=== PATIENT | female | born 1940 | race Caucasian/White ===

== ENCOUNTER 2017-10-05 14:39 | Inpatient (IN) | payer MEDICARE ==
[~2017-10-05] VITALS: Ht 147.3 cm; Wt 59.9 kg
[~2017-10-05 14:39] MED LIST: Z.0.AZOR 10-40 MG1 E PO
--- NOTE | 2017-10-05 17:21 | Diagnostic Imaging Report ---
PROCEDURE:X-RAY CHEST, ONE VIEW 1705 hrs. COMPARISON:No relevant priors available for comparison. INDICATIONS:PRIMARY DOCTOR SENT TO ER DUE TO CHEST PAIN FINDINGS: The heart is enlarged. Aorta is ectatic with calcification of the arch. No hilar lymphadenopathy. Mild bronchial wall thickening is present. The lungs are diffusely hyperinflated. No mass or infiltrate. The costophrenic angles are sharp. No pneumothorax. The bones are diffusely demineralized. A fusion plate in lower cervical spine is partially imaged. There is a treated compression deformity in the upper lumbar spine. CONCLUSION: 1. Pulmonary hyperinflation suggestive of COPD. Mild bronchial wall thickening could be acute or chronic. No pulmonary infiltrates. 2. Cardiomegaly without vascular congestion. 3. Osseous findings as described above. Dictated by: Yessi Wheeler M.D. on 10/05/2017 at 17:28 Electronically approved by: Yessi Wheeler M.D. on 10/05/2017 at 17:28
[2017-10-05 17:23] LABS: BASOPHILS % 0.3 % (0.0-1.0); HEMATOCRIT 36.9 % (34.2-44.1); LYMPHOCYTES # (AUTO) 1.5 (1.0-3.2); LYMPHOCYTES % 22.3 % (18.0-39.1); MEAN CORPUSCULAR HEMOGLOBIN 30.4 pg (28-32); MEAN CORPUSCULAR HGB CONC 35.2 g/dL (31-35); MEAN CORPUSCULAR VOLUME 86.4 fL (81-99); MONOCYTES % 15.3 % (4.4-11.3); NEUTROPHILS % 61.9 % (38.7-80.0); PLATELET COUNT 236 x10e3/uL (140-360); RED BLOOD COUNT 4.27 x10e6/uL (3.6-5.1); RED CELL DISTRIBUTION WIDTH 12.3 % (11.7-14.4)
[2017-10-05 17:39] LABS: INR 0.86; PROTHROMBIN TIME 12.1 seconds (11.9-14.5)
[2017-10-05 17:40] LABS: PARTIAL THROMBOPLASTIN TIME 31.4 seconds (23.8-35.5)
[2017-10-05 17:52] LABS: ALANINE AMINOTRANSFERASE 25 IU/L (0-55); ALBUMIN 3.8 g/dL (3.5-5.0); ALBUMIN/GLOBULIN RATIO 1.1 (0.8-2.0); ALKALINE PHOSPHATASE 81 IU/L (40-150); ANION GAP 12.7 mmol/L (8-16); BLOOD UREA NITROGEN 17 mg/dL (7-26); BUN/CREATININE RATIO 24 (6-25); CALCIUM 9.3 mg/dL (8.4-10.2); CARBON DIOXIDE 26 mmol/L (22-29); CHLORIDE 95 mmol/L (98-107); CREATINE KINASE 108 IU/L (29-168); CREATININE, SERUM 0.72 mg/dL (0.57-1.11); EST GLOMERULAR FILTRATION RATE > 60 ML/MIN (60-); GLUCOSE 139 mg/dL (74-118); POTASSIUM 3.7 mmol/L (3.5-5.1); SODIUM 130 mmol/L (136-145)
[2017-10-05 18:05] LABS: TROPONIN I 0.009 ng/mL (0-0.300)
[2017-10-05] MEDS ORDERED: ALBUTEROL SULF 0.083% NEB SOLN 3 ML NEB NEB STA (21:11)
[2017-10-05] MEDS ORDERED: IPRATROPIUM BROMIDE 0.02% 2.5 ML NEB NEB ONE (21:15)
[2017-10-05] MEDS ORDERED: METHYLPREDNISOLONE SOD SUCC 125 MG/2ML VIAL IV ONE (21:15)
[2017-10-05] MEDS ORDERED: ASPIRIN 81 MG CHEW TAB PO ONE (22:00)
[2017-10-05] MEDS ORDERED: WATER STERILE 10 ML VIAL INJ PRN (22:15)
[2017-10-05 22:21] LABS: BILIRUBIN,URINE NEGATIVE (NEGATIVE); KETONES,URINE 3+ (NEGATIVE); LEUKOCYTE ESTERASE ,URINE 2+ (NEGATIVE); NITRITE,URINE NEGATIVE (NEGATIVE); URINE UROBILINOGEN 0.2 mg/dL (0.2 - 1)
[2017-10-05 22:22] LABS: CLARITY,URINE SL CLOUDY (CLEAR); COLOR,URINE YELLOW (YELLOW); PROTEIN,URINE DIPSTICK 1+ (NEGATIVE)
[2017-10-05 22:31] LABS: BACTERIA,URINE FEW /HPF; EPITHELIAL CELLS,URINE FEW /LPF; MUCUS,URINE MODERATE (RARE)
[2017-10-05 22:32] LABS: WBC,URINE (MAN) 21-50 /HPF (0-5)
[2017-10-06] MEDS ORDERED: PREDNISONE20 MG PO (00:24)
[2017-10-06] MEDS ORDERED: PROAIR HFA INH8.5 GM IH (00:24)
[2017-10-06] MEDS ORDERED: anoro ellipta IH (00:24)
[2017-10-06] MEDS ORDERED: GUAIFENESIN 200 MG/10 ML UDC PO PRN (00:30)
[2017-10-06] MEDS ORDERED: ACETAMINOPHEN 325 MG TAB PO PRN (00:30)
[2017-10-06] MEDS ORDERED: CHLORASEPTIC SPRAY 177 ML BTL MM PRN (00:30)
[2017-10-06] MEDS: METHYLPREDNISOLONE SOD SUCC 40 MG/ML VIAL IV SCH ×3 (02:11→20:57)
[2017-10-06] MEDS ORDERED: ASPIRIN 81 MG CHEW TAB PO ONE (03:00)
[2017-10-06] MEDS: ENOXAPARIN SOD INJ 40 MG/0.4 ML SYR SC SCH ×2 (03:15→18:06)
[2017-10-06] MEDS: CEFTRIAXONE SOD 1 GM VIAL IV SCH ×2 (03:15→21:55)
--- NOTE | 2017-10-06 03:41 | Consultation ---
DATE OF CONSULTATION: October 05, 2017 PULMONARY MEDICINE CONSULT PRIMARY CARE DOCTOR: Dr. Flores. HISTORY OF PRESENT ILLNESS: Ms. Dickson is a pleasant 77-year-old female with shortness of breath. Patient with pattern of worsening shortness of breath recently. Onset was 5 days previous. Patient used her 's inhaler for minimal relief only and this was not sufficient. Patient tried to stay at home without coming to the hospital. Finally, she went to her primary care doctor today. She was given initial treatment, but was told to come to emergency room as she was too far advanced in her shortness of breath. Patient with increasing phlegm secretions. Her baseline exercise tolerance is 1 home distance and she can only do 1 room right now. She has associated crackles in her lungs and some small wheezing. Patient had chest x-ray showing hyperinflated lungs, but otherwise no definite pneumonia. Patient was admitted to the hospital after coming to [facility] Emergency Room. PAST MEDICAL HISTORY: COPD, osteoporosis, hypertension. MEDICATIONS: Medication list reviewed per the electronic record. No personal inhalers per patient preference in the past as she uses her 's. ALLERGIES: CODEINE CITED. FAMILY HISTORY: Noncontributory to this. SOCIAL HISTORY: Patient smokes since age 19 to 77, active, 1.5 packs per day. No alcohol. No drugs. She is retired office bookkeeper. Lives with her . REVIEW OF SYSTEMS GENERAL: No weight changes. OPHTHALMOLOGIC: No icteric. ENT: No dry mouth. ENDOCRINE: No thyroid disease. PULMONARY: No asthma. CARDIAC: No heart attacks. IMMUNOLOGIC: No allergies chronically. No ectopy. GI: No constipation. : No blood in the urine. DERMATOLOGIC: No rashes. NEUROLOGIC: No seizures. EXAM VITALS: Afebrile. Vital signs noted per electronic record. GENERAL: In no acute distress, but she is very tired, weak and pale and she seems very low on energy. Mild increase in neck muscle use to breathe. HEENT: Normocephalic, atraumatic. NECK: Supple. Throat midline. LUNGS: Bilateral air entry, [id number] air entry, moderate crackles, few rhonchi, few wheezes. CARDIOVASCULAR: S1, S2. No murmurs, rubs or gallops. ABDOMEN: Soft, nontender. EXTREMITIES: No clubbing, no cyanosis. There is 1+ edema at the ankles and feet. INTEGUMENTARY: No rash, no purpura. LABS: Sodium 130, chloride 95, BUN 17, creatinine 0.7. Albumin 3.8. White count 6.5, hematocrit 37, platelets 236,000. Urinalysis with RBC 6-10, WBC 21-50, 3+ ketones, 3+ blood in urine. IMPRESSION 1. Chronic obstructive pulmonary disease with exacerbation. 2. Debility/weakness. 3. Hypertension with urgency/emergency, 188/86 blood pressure coming in. 4. Osteopenia. 5. Mild chronic bronchitis. PLAN: Admit to hospital. Give steroids. Bronchodilators are indicated. DVT prophylaxis. Patient will benefit from aggressive pulmonary rehab after hospitalization. She needs to strengthen. Will follow along closely. Initial antibiotics should be given, given severity of the illness to ensure we do not miss pneumonia. Patient needs low-dose chest CT as outpatient for lung cancer screening. Outpatient PFT is indicated. Prior to discharge, will need consideration for home oxygen. She will benefit from her own inhalers to be given to her. Thank you very much Dr. Flores and Dr. Galeana for this consult. I will remain available for questions, so please call. Job#: [id number]
[2017-10-06 03:56] LABS: TROPONIN I 0.007 ng/mL (0-0.300)
[2017-10-06] MEDS: ALBUTEROL/IPRATROPIUM 3 ML NEB NEB SCH ×6 (04:15→23:00)
[2017-10-06] MEDS: DOXYCYCLINE 100MG/NS 100ML 100 ML IV SCH ×2 (08:50→20:10)
[2017-10-06 09:33] LABS: HEMATOCRIT 34.4 % (34.2-44.1); HEMOGLOBIN 12.4 g/dL (12.0-16.0); LYMPHOCYTES # (AUTO) 0.5 (1.0-3.2); LYMPHOCYTES % 22.8 % (18.0-39.1); MEAN CORPUSCULAR HEMOGLOBIN 31.2 pg (28-32); MEAN CORPUSCULAR VOLUME 86.6 fL (81-99); MONOCYTES % 1.5 % (4.4-11.3); NEUTROPHILS # (AUTO) 1.6 (2.1-6.9); NEUTROPHILS % 75.7 % (38.7-80.0); PLATELET COUNT 215 x10e3/uL (140-360); RED BLOOD COUNT 3.97 x10e6/uL (3.6-5.1); RED CELL DISTRIBUTION WIDTH 12.1 % (11.7-14.4)
[2017-10-06 09:55] LABS: ANION GAP 14.6 mmol/L (8-16); BLOOD UREA NITROGEN 17 mg/dL (7-26); BUN/CREATININE RATIO 21 (6-25); CALCIUM 8.8 mg/dL (8.4-10.2); CARBON DIOXIDE 24 mmol/L (22-29); CHLORIDE 94 mmol/L (98-107); CREATININE, SERUM 0.81 mg/dL (0.57-1.11); EST GLOMERULAR FILTRATION RATE > 60 ML/MIN (60-); GLUCOSE 349 mg/dL (74-118); POTASSIUM 3.6 mmol/L (3.5-5.1); SODIUM 129 mmol/L (136-145)
[2017-10-06 10:58] LABS: CREATINE KINASE MB 1.1 ng/mL (0.00-5.00); TROPONIN I 0.001 ng/mL (0-0.300)
[2017-10-06 11:27] LABS: LYMPHOCYTES % (MANUAL) 22 % (19-48); MONOCYTES % (MANUAL) 2 % (3.4-9.0); NEUTROPHILS % (MANUAL) 75 % (40-74); PLATELET ESTIMATE ADEQUATE; PLATELET MORPHOLOGY COMMENT NORMAL; RBC MORPHOLOGY COMMENT NORMAL
[2017-10-06 15:05] VITALS: BP 153/68
[2017-10-06] MEDS ORDERED: ALBUTEROL SULFATE HFA 8GM INHALATION AEROSOL INH PRN (16:45)
[2017-10-06 17:18] VITALS: BP 146/67
[2017-10-06] MEDS ORDERED: SODIUM CHLORIDE 0.9% 250ML 250 ML ONE (20:21)
[2017-10-06 22:56] VITALS: BP 146/67
[2017-10-07] VITALS (8 sets, daily range): BP systolic 136–163; BP diastolic 63–71
[2017-10-07] MEDS: ALBUTEROL/IPRATROPIUM 3 ML NEB NEB SCH ×4 (02:30→23:00)
[2017-10-07 06:29] LABS: BASOPHILS % 0.1 % (0.0-1.0); EOSINOPHILS % 0.1 % (0.0-6.0); HEMATOCRIT 33.5 % (34.2-44.1); HEMOGLOBIN 11.7 g/dL (12.0-16.0); LYMPHOCYTES # (AUTO) 1.3 (1.0-3.2); MEAN CORPUSCULAR HEMOGLOBIN 30.6 pg (28-32); MEAN CORPUSCULAR HGB CONC 34.9 g/dL (31-35); MEAN CORPUSCULAR VOLUME 87.7 fL (81-99); MONOCYTES % 5.5 % (4.4-11.3); NEUTROPHILS % 86.8 % (38.7-80.0); PLATELET COUNT 217 x10e3/uL (140-360); RED BLOOD COUNT 3.82 x10e6/uL (3.6-5.1); RED CELL DISTRIBUTION WIDTH 12.4 % (11.7-14.4)
[2017-10-07 06:54] LABS: ANION GAP 13.9 mmol/L (8-16); BLOOD UREA NITROGEN 15 mg/dL (7-26); BUN/CREATININE RATIO 19 (6-25); CARBON DIOXIDE 26 mmol/L (22-29); CHLORIDE 95 mmol/L (98-107); CREATININE, SERUM 0.77 mg/dL (0.57-1.11); EST GLOMERULAR FILTRATION RATE > 60 ML/MIN (60-); GLUCOSE 170 mg/dL (74-118); MAGNESIUM 1.8 MG/DL (1.3-2.1); POTASSIUM 3.9 mmol/L (3.5-5.1); SODIUM 131 mmol/L (136-145); TRIGLYCERIDES 91 MG/DL (0-149)
--- NOTE | 2017-10-07 06:55 | Diagnostic Imaging Report ---
EXAMINATION: CHEST SINGLE (PORTABLE) INDICATION: Pneumonia. COMPARISON: None FINDINGS: TUBES and LINES: None. LUNGS: Lungs are well inflated. Lungs are clear. There is no evidence of pneumonia or pulmonary edema. PLEURA: No pleural effusion or pneumothorax. HEART AND MEDIASTINUM: Cardiac size is mildly enlarged. There are atherosclerotic calcifications within the aorta. BONES AND SOFT TISSUES: No acute osseous lesion. Soft tissues are unremarkable. UPPER ABDOMEN: No free air under the diaphragm. IMPRESSION: No acute thoracic abnormality. Signed by: Dr. Keith Marroquin M.D. on 10/07/2017 6:51 AM
[2017-10-07 07:17] LABS: THYROID STIMULATING HORMONE 0.293 uIU/mL (0.350-4.940)
[2017-10-07] MEDS: DOXYCYCLINE 100MG/NS 100ML 100 ML IV SCH ×2 (10:00→20:11)
[2017-10-07] MEDS: METHYLPREDNISOLONE SOD SUCC 40 MG/ML VIAL IV SCH (10:00)
[2017-10-07 10:29] LABS: BASOPHILS % 0.1 % (0.0-1.0); HEMATOCRIT 33.2 % (34.2-44.1); HEMOGLOBIN 11.8 g/dL (12.0-16.0); LYMPHOCYTES # (AUTO) 1.4 (1.0-3.2); LYMPHOCYTES % 7.7 % (18.0-39.1); MEAN CORPUSCULAR HEMOGLOBIN 31.1 pg (28-32); MEAN CORPUSCULAR HGB CONC 35.5 g/dL (31-35); MEAN CORPUSCULAR VOLUME 87.6 fL (81-99); MONOCYTES # (AUTO) 1.2 (0.2-0.8); MONOCYTES % 6.8 % (4.4-11.3); NEUTROPHILS # (AUTO) 15.6 (2.1-6.9); PLATELET COUNT 225 x10e3/uL (140-360); RED BLOOD COUNT 3.79 x10e6/uL (3.6-5.1); RED CELL DISTRIBUTION WIDTH 12.6 % (11.7-14.4)
--- NOTE | 2017-10-07 13:28 | History and Physical ---
HISTORY OF PRESENT ILLNESS: A 69-year-old white female with past medical history positive for hypertension, history of COPD. Patient came here with shortness of breath. She was found to have COPD exacerbation. Chest x-ray failed to show any evidence of pneumonia. REVIEW OF SYSTEMS: CARDIOVASCULAR: No chest pain or palpitations. RESPIRATORY: Shortness of breath, cough and wheezing GENITOURINARY: No frequency or dysuria. GASTROINTESTINAL: No nausea, no vomiting or diarrhea. ALLERGIES: CODEINE. SOCIAL HISTORY: She is still smoking. She does not drink alcohol. PAST MEDICAL HISTORY: Hypertension and COPD. PHYSICAL EXAMINATION: HEART: Shows regular rhythm. Normal S1 S2. No extra sounds. LUNGS: Clear bilaterally. ABDOMEN: Soft. EXTREMITIES: Show no evidence of cyanosis, edema or trauma. Chest x-ray showed evidence of COPD but no evidence of infiltrates. On the BMP, sodium 129, potassium 3.6, chloride 94. CO2 24, BUN 17, creatinine 0.81. Glucose 349. On the CBC white blood count 2.06, hemoglobin 12.4, hematocrit 34.4, platelet count 215,000. PT 12.1, PTT 31.4. INR 0.86. AST 26, ALT 25. Total bilirubin 0.3. Alkaline phosphatase 81. FINAL IMPRESSION: 1. Chronic obstructive pulmonary disease exacerbation. 2. Hypertension. 3. Leukopenia. 4. Hyponatremia. PLAN OF TREATMENT: Going to repeat a CBC and BMP tomorrow. Going to continue albuterol and Atrovent q.4 h. Doxycycline 100 mg IV piggyback twice a day. Rocephin 2 grams IV piggyback once a day. Methylprednisolone 40 mg IV q.6 hours. Lovenox 40 mg ___ times daily. Resume home medications. Job#: [id number]
--- NOTE | 2017-10-07 16:41 | Progress Note ---
DATE: October 06, 2017 PULMONARY MEDICINE PROGRESS NOTE SUBJECTIVE: Ms. Dickson was seen and examined at bedside. She feels mildly better. She still feels that she is only at about 20% of her baseline, 98% oxygen saturation on liters per minute nasal cannula. The patient was able to walk with mild assist only. The patient is still not very hungry. REVIEW OF SYSTEMS: No nosebleeds, no diarrhea. OBJECTIVE VITAL SIGNS: Afebrile. Vital signs noted per electronic record. GENERAL: In no acute distress, but looks very weak still, calm. HEENT: Normocephalic, atraumatic. NECK: Supple. Throat midline. LUNGS: Bilateral air entry, moderate air entry only, few crackles still, few rhonchi. CARDIOVASCULAR: S1 and S2. No murmurs, rubs or gallops. ABDOMEN: Soft and nontender. EXTREMITIES: No clubbing or cyanosis. There is less edema today, still trace. Mobile. INTEGUMENT: No rash and no purpura. LABORATORY DATA: White count 2.1, platelets 215,000. Sodium 129, potassium 3.6, BUN 17, creatinine 0.8. IMPRESSION 1. Chronic obstructive pulmonary disease with exacerbation. 2. Hyponatremia under evaluation. 3. Weakness. 4. Recurrent bronchitis in the past. 5. Hypertension with emergency. PLAN: Continue current treatment. Recheck sodium and recheck urine and serum lytes to assess the hyponatremia. Repeat a chest x-ray tomorrow to ensure no pneumonia is developing. Continue antibiotics at this time. Bronchodilators and steroids as well. Will follow along closely. Job#: [id number]
[2017-10-07] MEDS: ENOXAPARIN SOD INJ 40 MG/0.4 ML SYR SC SCH (17:44)
[2017-10-07] MEDS: CEFTRIAXONE SOD 1 GM VIAL IV SCH (21:40)
[2017-10-07] MEDS ORDERED: CLONIDINE HCL 0.2 MG TAB PO PRN (23:00)
[2017-10-07] MEDS ORDERED: DEXTROSE 50% SYRINGE 50 ML IV PRN ×2 (23:15)
[2017-10-07] MEDS ORDERED: INSULIN REGULAR, HUMAN 100 UNIT/1 ML 3ML VIAL SQ SCH (23:30)
[2017-10-08] VITALS: BP 165/71
[2017-10-08] MEDS: INSULIN REGULAR, HUMAN 100 UNIT/1 ML 3ML VIAL SQ SCH ×2 (00:15→11:30)
[2017-10-08] MEDS: ALBUTEROL/IPRATROPIUM 3 ML NEB NEB SCH ×2 (02:14→07:15)
[2017-10-08 04:00] VITALS: BP 122/55
[2017-10-08 06:32] LABS: BASOPHILS % 0.1 % (0.0-1.0); EOSINOPHILS % 0.1 % (0.0-6.0); HEMATOCRIT 29.1 % (34.2-44.1); HEMOGLOBIN 10.2 g/dL (12.0-16.0); LYMPHOCYTES # (AUTO) 1.8 (1.0-3.2); LYMPHOCYTES % 10.6 % (18.0-39.1); MEAN CORPUSCULAR HEMOGLOBIN 30.6 pg (28-32); MEAN CORPUSCULAR HGB CONC 35.1 g/dL (31-35); MEAN CORPUSCULAR VOLUME 87.4 fL (81-99); MONOCYTES # (AUTO) 1.4 (0.2-0.8); MONOCYTES % 8.1 % (4.4-11.3); NEUTROPHILS # (AUTO) 13.9 (2.1-6.9); NEUTROPHILS % 80.4 % (38.7-80.0); PLATELET COUNT 198 x10e3/uL (140-360); RED BLOOD COUNT 3.33 x10e6/uL (3.6-5.1); RED CELL DISTRIBUTION WIDTH 12.7 % (11.7-14.4)
[2017-10-08 06:44] LABS: ANION GAP 10.7 mmol/L (8-16); BLOOD UREA NITROGEN 15 mg/dL (7-26); BUN/CREATININE RATIO 22 (6-25); CALCIUM 8.3 mg/dL (8.4-10.2); CARBON DIOXIDE 27 mmol/L (22-29); CHLORIDE 95 mmol/L (98-107); CREATININE, SERUM 0.68 mg/dL (0.57-1.11); EST GLOMERULAR FILTRATION RATE > 60 ML/MIN (60-); GLUCOSE 99 mg/dL (74-118); POTASSIUM 3.7 mmol/L (3.5-5.1); SODIUM 129 mmol/L (136-145)
[2017-10-08 07:04] LABS: FREE THYROXINE INDEX 1.9776 (1.4-3.8); T3 UPTAKE 32.58 % (22.50-37.00); THYROID STIMULATING HORMONE 1.104 uIU/mL (0.350-4.940)
[2017-10-08 07:29] VITALS: BP 114/57
[2017-10-08 07:57] VITALS: BP 114/57
[2017-10-08] MEDS: DOXYCYCLINE 100MG/NS 100ML 100 ML IV SCH (08:30)
[2017-10-08] MEDS ORDERED: OLMESARTAN 20 MG TAB PO SCH (09:00)
[2017-10-08] MEDS ORDERED: PREDNISONE 20 MG TAB PO SCH (09:00)
[2017-10-08] MEDS ORDERED: AMLODIPINE BESYLATE 10 MG TAB PO SCH (09:00)
--- NOTE | 2017-10-08 09:58 | Progress Note ---
DATE: October 07, 2017 PULMONARY CRITICAL CARE MEDICINE FOLLOWUP PROGRESS NOTE SUBJECTIVE: Ms. Dickson was seen and examined at the bedside. She is feeling better. She is about 50% of her baseline. She is eating well and having bowel movements. Oxygen saturation 96% on 3 L per nasal cannula. REVIEW OF SYSTEMS: No headaches or GI bleed. OBJECTIVE VITALS: Afebrile. Vital signs noted per electronic record. GENERAL: In no acute distress. Alert, calm and better color. HEENT: Normocephalic and atraumatic. NECK: Supple. Throat midline. LUNGS: Bilateral air entry. Few rhonchi. No wheezes. CARDIOVASCULAR: S1 and S2. No murmurs, rubs or gallops. ABDOMEN: Soft and nontender. EXTREMITIES: No clubbing. No cyanosis. There is only trace edema of the ankles. INTEGUMENT: No rash. No purpura. LABS: TSH decreased. Magnesium is 1.8. Lactic acid 25. Potassium 3.9. White count 18. IMPRESSION AND PLAN 1. Chronic obstructive pulmonary disease with exacerbation. 2. Chronic smoker. 3. Mild hyponatremia. 4. Weakness. 5. Hypoxemia. 6. Lactic acidosis, under investigation. 7. Decreased thyroid hormone level. Full PFTs will be checked. May need to be repeated in the future. Oxygen evaluation as the patient is planned to go home soon. Ambulate the patient. Continue to get her strength. Wean off oxygen. She may need home oxygen when she leaves. DVT prophylaxis. Wean steroids. Job#: [id number] CHRISTOPHER
[2017-10-08 11:23] VITALS: BP 138/63
[2017-10-08] MEDS ORDERED: DOXYCYCLINE HY100 MG PO (11:58)
--- NOTE | 2017-10-08 17:07 | Discharge Summary ---
HISTORY OF PRESENT ILLNESS: The patient is 69-year-old female with past medical history positive for hypertension and COPD. She came here with shortness of breath. She was found to have COPD exacerbation. Chest x-ray came back clear with no evidence of any pneumonia. Patient was started on albuterol and Atrovent, prednisone, on IV antibiotic empirically. She is doing better. She is going to go home today. The sodium was found to be low at the beginning at 129 which is better now. White blood count is elevated because of the prednisone. Patient has no fever whatsoever. I discussed the case with Dr. Domingo, pulmonology, and he agreed with the patient going home and follow up with Dr. Puma Flores, her primary care physician. PHYSICAL EXAM: VITAL SIGNS: Blood pressure 138/63, temperature 98.2, heart rate 79 per minute, respiratory rate is 18 per minute, oxygen saturation is 95% on room air. HEART: Regular rhythm. No murmur. No extra sounds. LUNGS: Clear bilaterally. ABDOMEN: Soft. EXTREMITIES: Show no evidence of cyanosis, edema or trauma. On the BMP, sodium 129, potassium 3.7, chloride 95, CO2 27, BUN 15, creatinine 0.68, glucose 99 and the CBC white blood count 17.2, hemoglobin 10.2, hematocrit 29.1 and platelet count 198,000. PT 12.1. INR 0.86. PTT 31.4. AST 26, ALT 25. Total bilirubin 0.3, alkaline phosphatase 81. FINAL IMPRESSION 1. Chronic obstructive pulmonary disease exacerbation. 2. Hyponatremia. 3. Hypertension. 4. Leukocytosis, . PLAN OF TREATMENT: We are going to discharge the patient on prednisone 20 mg daily, ProAir 2 inhalation q.4 hours as needed for shortness of breath and 1 inhalation daily. Follow up with her primary care physician, Dr. Puma Flores. ALEXIS CARROLL MD Job#: [id number] GH
--- NOTE | 2017-10-09 01:41 | Progress Note ---
DATE: October 08, 2017 PULMONARY MEDICINE PROGRESS NOTE SUBJECTIVE: Mrs. Dickson was seen and examined at bedside. Today, she feels as if she is at 80% of her baseline. Oxygen saturation 98% per nasal cannula oxygen. When she came off the oxygen, she was at 93% saturation. Multiple voids and bowel movements. REVIEW OF SYSTEMS: No headaches. OBJECTIVE VITALS: Afebrile. Vital signs noted per electronic record. GENERAL: In no acute distress. Alert, calm and strong. HEENT: Normocephalic and atraumatic. NECK: Supple. Throat midline. LUNGS: Bilateral air entry. Few rare rhonchi. CARDIOVASCULAR: S1 and S2. ABDOMEN: Soft. EXTREMITIES: No edema. INTEGUMENT: No rash. LABS: White count 17, hematocrit 29. Creatinine 0.7. IMPRESSION AND PLAN 1. Chronic obstructive pulmonary disease with exacerbation. 2. Active current smoker. 3. Hypoxemia. 4. Weakness. 5. Hyponatremia. Will follow up the patient in a couple of weeks. She needs reassessment of her electrolytes. Continue steroids and bronchodilators. She does not need home oxygen for now. Recommend pulmonary rehab. Job#: [id number] CHRISTOPHER
[2017-10-13] MEDS ORDERED: ALENDRONATE SODIUM 70 MG TAB PO SCH (06:30)
== END 2017-10-08 12:21 | disposition home or self-care (01) | DRG 191 ==
LOC: ER 14:39 → ERHOLD 21:57 → IMCU 10-06 15:33 → OBSVTOIN 10-07 06:31
PROVIDERS: ADMIT Internal Medicine; ATTEND Internal Medicine
DX: J44.1 Chronic obstructive pulmonary disease with (acute) exacerbation (principal); E87.1 Hypo-osmolality and hyponatremia; E87.2 Acidosis; B33.3 Retrovirus infections, not elsewhere classified; M81.0 Age-related osteoporosis without current pathological fracture; M85.80 Other specified disorders of bone density and structure, unspecified site; J42 Unspecified chronic bronchitis; I10 Essential (primary) hypertension; F17.210 Nicotine dependence, cigarettes, uncomplicated; R09.02 Hypoxemia
CPT/HCPCS: 36415; 71010; 80048; 80053; 81001; 82436; 82550; 82553; 82948; 83605; 83735; 83880; 83930; 83935; 84300; 84436; 84443; 84478; 84479; 84484; 85025; 85610; 85730; 87086; 93005; 94640; 96374; 99284; G0378; J0696; J1650; J2920; J2930; J7050

== ENCOUNTER 2021-05-02 05:47 | Inpatient (IN) | payer MEDICARE ==
[~2021-05-02] VITALS: Ht 147.3 cm; Wt 57.8 kg
[2021-05-02] VITALS (7 sets, daily range): BP systolic 119–164; BP diastolic 56–67
[~2021-05-02 05:47] MED LIST changes: +DOXYCYCLINE HY100 MG PO; +PREDNISONE20 MG PO; +PROAIR HFA INH8.5 GM IH; +anoro ellipta IH
[2021-05-02] MEDS ORDERED: IPRATROPIUM BROMIDE 0.02% 2.5 ML NEB NEB STA (06:06)
[2021-05-02] MEDS ORDERED: SODIUM CHLORIDE 0.9% 1000ML 1,000 ML IV STA (06:06)
[2021-05-02] MEDS ORDERED: ACETAMINOPHEN 325 MG TAB PO STA (06:06)
[2021-05-02] MEDS ORDERED: ALBUTEROL SULF 0.083% NEB SOLN 3 ML NEB NEB STA (06:06)
[2021-05-02] MEDS ORDERED: METHYLPREDNISOLONE SOD SUCC 125 MG/2ML VIAL IV STA (06:06)
[2021-05-02] MEDS ORDERED: SODIUM CHLORIDE 0.9% 1000ML 1,000 ML IV SCH (06:30)
[2021-05-02] MEDS ORDERED: METHYLPREDNISOLONE SOD SUCC 125 MG/2ML VIAL ONE (06:32)
[2021-05-02 06:45] LABS: BASOPHILS # (AUTO) 0.1 (0.0-0.1); BASOPHILS % 0.3 % (0.0-1.0); HEMOGLOBIN 13.1 g/dL (12.0-16.0); LYMPHOCYTES # (AUTO) 0.8 (1.0-3.2); LYMPHOCYTES % 3.3 % (18.0-39.1); MEAN CORPUSCULAR HEMOGLOBIN 30.8 pg (28-32); MEAN CORPUSCULAR HGB CONC 34.5 g/dL (31-35); MEAN CORPUSCULAR VOLUME 89.4 fL (81-99); MONOCYTES # (AUTO) 1.3 (0.2-0.8); MONOCYTES % 5.4 % (4.4-11.3); NEUTROPHILS # (AUTO) 21.3 (2.1-6.9); NEUTROPHILS % 90.2 % (38.7-80.0); PLATELET COUNT 183 x10e3/uL (140-360); RED BLOOD COUNT 4.25 x10e6/uL (3.6-5.1); RED CELL DISTRIBUTION WIDTH 12.6 % (11.7-14.4)
[2021-05-02 07:14] LABS: ALBUMIN/GLOBULIN RATIO 1.3 (0.8-2.0); ANION GAP 14.9 mmol/L (8-16); CREATININE, SERUM 0.8 mg/dL (0.57-1.11); POTASSIUM 3.9 mmol/L (3.5-5.1)
[2021-05-02] MEDS: CEFTRIAXONE 1 GM in SODIUM CHLORIDE 0.9% 50ML 50 ML IV SCH ×2 (07:35→09:00)
[2021-05-02] MEDS ORDERED: ALBUTEROL/IPRATROPIUM 3 ML NEB NEB PRN (12:00)
[2021-05-02] MEDS: METHYLPREDNISOLONE SOD SUCC 125 MG/2ML VIAL IV SCH ×2 (14:00→22:00)
[2021-05-02] MEDS ORDERED: SODIUM CHLORIDE 0.9% 250ML 250 ML ONE (14:16)
[2021-05-02] MEDS: ALBUTEROL/IPRATROPIUM 3 ML NEB NEB SCH ×3 (14:23→19:35)
[2021-05-03] VITALS (8 sets, daily range): BP systolic 126–138; BP diastolic 52–70
[2021-05-03] MEDS: ALBUTEROL/IPRATROPIUM 3 ML NEB NEB SCH ×6 (00:38→23:10)
[2021-05-03] MEDS: METHYLPREDNISOLONE SOD SUCC 125 MG/2ML VIAL IV SCH ×3 (06:11→20:55)
[2021-05-03] MEDS: CEFTRIAXONE 1 GM in SODIUM CHLORIDE 0.9% 50ML 50 ML IV SCH (09:33)
[2021-05-03] MEDS: SODIUM CHLORIDE 0.9% IV SCH (11:00)
[2021-05-03] MEDS: AZITHROMYCIN IV SCH (11:00)
[2021-05-03] MEDS ORDERED: FUROSEMIDE INJ 10 MG/ML 4 ML VIAL IV NR (14:45)
[2021-05-03] MEDS ORDERED: ALBUTEROL/IPRATROPIUM 3 ML NEB NEB SCH (16:00)
[2021-05-03] MEDS ORDERED: ZOLPIDEM TARTRATE 5 MG TAB PO PRN (21:00)
[2021-05-03] MEDS: BUDESONIDE/FORMOTEROL 160/4.5MCG INHALER INH SCH (23:10)
[2021-05-04] VITALS (8 sets, daily range): BP systolic 126–138; BP diastolic 47–73
[2021-05-04] MEDS: ALBUTEROL/IPRATROPIUM 3 ML NEB NEB SCH ×4 (03:05→14:22)
[2021-05-04] MEDS: ALBUTEROL SULFATE HFA 8GM INHALATION AEROSOL INH PRN ×3 (04:01→19:57)
[2021-05-04 05:04] LABS: BASOPHILS # (AUTO) 0.1 (0.0-0.1); BASOPHILS % 0.3 % (0.0-1.0); HEMATOCRIT 35.7 % (34.2-44.1); HEMOGLOBIN 12.1 g/dL (12.0-16.0); LYMPHOCYTES # (AUTO) 0.6 (1.0-3.2); LYMPHOCYTES % 1.6 % (18.0-39.1); MEAN CORPUSCULAR HEMOGLOBIN 30.6 pg (28-32); MEAN CORPUSCULAR HGB CONC 33.9 g/dL (31-35); MEAN CORPUSCULAR VOLUME 90.2 fL (81-99); MONOCYTES # (AUTO) 0.8 (0.2-0.8); MONOCYTES % 2.2 % (4.4-11.3); NEUTROPHILS # (AUTO) 32.2 (2.1-6.9); NEUTROPHILS % 94.4 % (38.7-80.0); PLATELET COUNT 190 x10e3/uL (140-360); RED BLOOD COUNT 3.96 x10e6/uL (3.6-5.1); RED CELL DISTRIBUTION WIDTH 12.8 % (11.7-14.4)
[2021-05-04 05:43] LABS: ALBUMIN 3.7 g/dL (3.5-5.0); ALBUMIN/GLOBULIN RATIO 1.1 (0.8-2.0); ANION GAP 15.6 mmol/L (8-16); CALCIUM 8.5 mg/dL (8.4-10.2); CREATININE, SERUM 0.8 mg/dL (0.57-1.11); POTASSIUM 3.6 mmol/L (3.5-5.1)
[2021-05-04] MEDS: METHYLPREDNISOLONE SOD SUCC 125 MG/2ML VIAL IV SCH ×2 (06:17→17:48)
[2021-05-04 06:48] LABS: LYMPHOCYTES % (MANUAL) 2 % (19-48); MONOCYTES % (MANUAL) 2 % (3.4-9.0); NEUTROPHILS % (MANUAL) 96 % (40-74)
[2021-05-04 06:49] LABS: PLATELET ESTIMATE ADEQUATE; PLATELET MORPHOLOGY COMMENT NORMAL; RBC MORPHOLOGY COMMENT NORMAL
[2021-05-04] MEDS: BUDESONIDE/FORMOTEROL 160/4.5MCG INHALER INH SCH ×2 (09:21→19:10)
[2021-05-04] MEDS: CEFTRIAXONE 1 GM in SODIUM CHLORIDE 0.9% 50ML 50 ML IV SCH (09:41)
[2021-05-04] MEDS: SODIUM CHLORIDE 0.9% IV SCH (10:20)
[2021-05-04] MEDS: AZITHROMYCIN IV SCH (10:20)
[2021-05-04] MEDS ORDERED: AZOR 10-20 MG1 EACH PO (17:44)
[2021-05-04] MEDS ORDERED: PRIMATENE MIS11.7 GM INH (17:44)
[2021-05-04] MEDS: ALBUTEROL/IPRATROPIUM 3 ML NEB NEB PRN (19:10)
[2021-05-04] MEDS ORDERED: GUAIFENESIN/CODEINE 10 ML CUP PO PRN (21:00)
[2021-05-05] VITALS (8 sets, daily range): BP systolic 136–147; BP diastolic 60–64
[2021-05-05] MEDS: GUAIFENESIN 200 MG/10 ML UDC PO PRN ×5 (00:02→23:54)
[2021-05-05] MEDS: ALBUTEROL SULFATE HFA 8GM INHALATION AEROSOL INH PRN ×3 (02:52→23:54)
[2021-05-05 05:04] LABS: BASOPHILS # (AUTO) 0.1 (0.0-0.1); BASOPHILS % 0.2 % (0.0-1.0); HEMOGLOBIN 11.4 g/dL (12.0-16.0); LYMPHOCYTES # (AUTO) 0.7 (1.0-3.2); LYMPHOCYTES % 2.6 % (18.0-39.1); MEAN CORPUSCULAR HEMOGLOBIN 30.9 pg (28-32); MEAN CORPUSCULAR HGB CONC 34.5 g/dL (31-35); MEAN CORPUSCULAR VOLUME 89.4 fL (81-99); MONOCYTES # (AUTO) 0.8 (0.2-0.8); MONOCYTES % 2.9 % (4.4-11.3); NEUTROPHILS # (AUTO) 25.8 (2.1-6.9); NEUTROPHILS % 92.9 % (38.7-80.0); PLATELET COUNT 192 x10e3/uL (140-360); RED BLOOD COUNT 3.69 x10e6/uL (3.6-5.1); RED CELL DISTRIBUTION WIDTH 12.7 % (11.7-14.4)
[2021-05-05] MEDS: METHYLPREDNISOLONE SOD SUCC 125 MG/2ML VIAL IV SCH ×2 (05:32→18:36)
[2021-05-05 05:49] LABS: ALBUMIN 3.4 g/dL (3.5-5.0); ALBUMIN/GLOBULIN RATIO 1.1 (0.8-2.0); ANION GAP 14.5 mmol/L (8-16); CALCIUM 8.6 mg/dL (8.4-10.2); CREATININE, SERUM 0.77 mg/dL (0.57-1.11)
[2021-05-05 06:04] LABS: LYMPHOCYTES % (MANUAL) 3 % (19-48); MONOCYTES % (MANUAL) 3 % (3.4-9.0); NEUTROPHILS % (MANUAL) 94 % (40-74)
[2021-05-05 06:05] LABS: PLATELET ESTIMATE ADEQUATE; PLATELET MORPHOLOGY COMMENT NORMAL; RBC MORPHOLOGY COMMENT NORMAL
[2021-05-05 06:44] LABS: POTASSIUM 4.5 mmol/L (3.5-5.1)
[2021-05-05] MEDS: BUDESONIDE/FORMOTEROL 160/4.5MCG INHALER INH SCH ×2 (07:55→19:20)
[2021-05-05] MEDS: CEFTRIAXONE 1 GM in SODIUM CHLORIDE 0.9% 50ML 50 ML IV SCH (08:42)
[2021-05-05] MEDS: SODIUM CHLORIDE 0.9% IV SCH (11:03)
[2021-05-05] MEDS: AZITHROMYCIN IV SCH (11:03)
[2021-05-06] VITALS (8 sets, daily range): BP systolic 135–152; BP diastolic 52–65
[2021-05-06 04:53] LABS: BASOPHILS # (AUTO) 0.1 (0.0-0.1); BASOPHILS % 0.5 % (0.0-1.0); HEMATOCRIT 36.6 % (34.2-44.1); HEMOGLOBIN 12.5 g/dL (12.0-16.0); LYMPHOCYTES # (AUTO) 0.9 (1.0-3.2); LYMPHOCYTES % 4.5 % (18.0-39.1); MEAN CORPUSCULAR HEMOGLOBIN 30.9 pg (28-32); MEAN CORPUSCULAR HGB CONC 34.2 g/dL (31-35); MEAN CORPUSCULAR VOLUME 90.4 fL (81-99); MONOCYTES # (AUTO) 0.6 (0.2-0.8); MONOCYTES % 3.2 % (4.4-11.3); NEUTROPHILS # (AUTO) 17.7 (2.1-6.9); NEUTROPHILS % 89.1 % (38.7-80.0); PLATELET COUNT 216 x10e3/uL (140-360); RED BLOOD COUNT 4.05 x10e6/uL (3.6-5.1); RED CELL DISTRIBUTION WIDTH 12.6 % (11.7-14.4)
[2021-05-06 05:18] LABS: ALBUMIN 3.5 g/dL (3.5-5.0); ALBUMIN/GLOBULIN RATIO 1.1 (0.8-2.0); ANION GAP 11.3 mmol/L (8-16); CALCIUM 8.7 mg/dL (8.4-10.2); CREATININE, SERUM 0.76 mg/dL (0.57-1.11); POTASSIUM 5.3 mmol/L (3.5-5.1)
[2021-05-06] MEDS: METHYLPREDNISOLONE SOD SUCC 125 MG/2ML VIAL IV SCH ×2 (05:20→17:35)
[2021-05-06] MEDS: BUDESONIDE/FORMOTEROL 160/4.5MCG INHALER INH SCH ×2 (06:48→19:10)
[2021-05-06] MEDS: AZITHROMYCIN IV SCH (07:40)
[2021-05-06] MEDS: SODIUM CHLORIDE 0.9% IV SCH (07:40)
[2021-05-06] MEDS: CEFTRIAXONE 1 GM in SODIUM CHLORIDE 0.9% 50ML 50 ML IV SCH (11:37)
[2021-05-06] MEDS: ALBUTEROL SULFATE HFA 8GM INHALATION AEROSOL INH PRN (19:10)
[2021-05-06] MEDS: GUAIFENESIN 200 MG/10 ML UDC PO PRN (20:37)
[2021-05-07] VITALS (8 sets, daily range): BP systolic 141–166; BP diastolic 55–68
[2021-05-07] MEDS: METHYLPREDNISOLONE SOD SUCC 125 MG/2ML VIAL IV SCH ×2 (06:00→19:23)
[2021-05-07] MEDS: BUDESONIDE/FORMOTEROL 160/4.5MCG INHALER INH SCH ×2 (07:00→19:05)
[2021-05-07] MEDS: CEFTRIAXONE 1 GM in SODIUM CHLORIDE 0.9% 50ML 50 ML IV SCH (09:19)
[2021-05-07] MEDS: SODIUM CHLORIDE 0.9% IV SCH (09:19)
[2021-05-07] MEDS: AZITHROMYCIN IV SCH (09:19)
[2021-05-07] MEDS ORDERED: ONDANSETRON HCL INJ 2MG/ML 2ML 2 MG/ML VIAL IV PRN (10:00)
[2021-05-07] MEDS: ALBUTEROL/IPRATROPIUM 3 ML NEB NEB PRN ×2 (11:25→19:05)
[2021-05-07 12:11] LABS: BASOPHILS # (AUTO) 0.1 (0.0-0.1); BASOPHILS % 0.8 % (0.0-1.0); HEMATOCRIT 39.3 % (34.2-44.1); HEMOGLOBIN 13.2 g/dL (12.0-16.0); LYMPHOCYTES # (AUTO) 0.6 (1.0-3.2); LYMPHOCYTES % 3.2 % (18.0-39.1); MEAN CORPUSCULAR HEMOGLOBIN 30.7 pg (28-32); MEAN CORPUSCULAR HGB CONC 33.6 g/dL (31-35); MEAN CORPUSCULAR VOLUME 91.4 fL (81-99); MONOCYTES # (AUTO) 0.9 (0.2-0.8); MONOCYTES % 4.6 % (4.4-11.3); NEUTROPHILS # (AUTO) 15.9 (2.1-6.9); NEUTROPHILS % 86.8 % (38.7-80.0); PLATELET COUNT 242 x10e3/uL (140-360); RED CELL DISTRIBUTION WIDTH 12.7 % (11.7-14.4)
[2021-05-07 12:29] LABS: ANION GAP 11.5 mmol/L (8-16); CALCIUM 8.5 mg/dL (8.4-10.2); CREATININE, SERUM 0.72 mg/dL (0.57-1.11); POTASSIUM 5.5 mmol/L (3.5-5.1)
[2021-05-07] MEDS ORDERED: SOD POLYSTYRENE SULFONATE SUSP 15 GM/60 ML BTL PO ONE (18:30)
[2021-05-08] VITALS (8 sets, daily range): BP systolic 139–163; BP diastolic 56–74
[2021-05-08 05:10] LABS: BASOPHILS # (AUTO) 0.1 (0.0-0.1); BASOPHILS % 0.5 % (0.0-1.0); HEMATOCRIT 36.8 % (34.2-44.1); HEMOGLOBIN 12.3 g/dL (12.0-16.0); LYMPHOCYTES # (AUTO) 0.7 (1.0-3.2); LYMPHOCYTES % 3.6 % (18.0-39.1); MEAN CORPUSCULAR HEMOGLOBIN 30.1 pg (28-32); MEAN CORPUSCULAR HGB CONC 33.4 g/dL (31-35); MEAN CORPUSCULAR VOLUME 90.2 fL (81-99); MONOCYTES # (AUTO) 0.7 (0.2-0.8); MONOCYTES % 3.8 % (4.4-11.3); NEUTROPHILS % 85.6 % (38.7-80.0); PLATELET COUNT 228 x10e3/uL (140-360); RED BLOOD COUNT 4.08 x10e6/uL (3.6-5.1); RED CELL DISTRIBUTION WIDTH 12.6 % (11.7-14.4)
[2021-05-08 05:31] LABS: ALBUMIN 3.2 g/dL (3.5-5.0); ALBUMIN/GLOBULIN RATIO 1.2 (0.8-2.0); ANION GAP 12.4 mmol/L (8-16); CREATININE, SERUM 0.72 mg/dL (0.57-1.11); POTASSIUM 4.4 mmol/L (3.5-5.1)
[2021-05-08] MEDS: BUDESONIDE/FORMOTEROL 160/4.5MCG INHALER INH SCH ×2 (06:55→19:00)
[2021-05-08] MEDS: ALBUTEROL SULFATE HFA 8GM INHALATION AEROSOL INH PRN (06:55)
[2021-05-08] MEDS: METHYLPREDNISOLONE SOD SUCC 125 MG/2ML VIAL IV SCH ×2 (06:55→16:59)
[2021-05-08] MEDS: CEFTRIAXONE 1 GM in SODIUM CHLORIDE 0.9% 50ML 50 ML IV SCH (09:32)
[2021-05-08] MEDS: AZITHROMYCIN IV SCH (09:33)
[2021-05-08] MEDS: SODIUM CHLORIDE 0.9% IV SCH (09:33)
[2021-05-08 10:30] LABS: BASOPHILS # (AUTO) 0.1 (0.0-0.1); BASOPHILS % 0.6 % (0.0-1.0); HEMATOCRIT 38.2 % (34.2-44.1); HEMOGLOBIN 12.9 g/dL (12.0-16.0); LYMPHOCYTES # (AUTO) 0.7 (1.0-3.2); LYMPHOCYTES % 3.6 % (18.0-39.1); MEAN CORPUSCULAR HEMOGLOBIN 30.7 pg (28-32); MEAN CORPUSCULAR HGB CONC 33.8 g/dL (31-35); MONOCYTES % 5.5 % (4.4-11.3); NEUTROPHILS # (AUTO) 15.8 (2.1-6.9); NEUTROPHILS % 83.9 % (38.7-80.0); PLATELET COUNT 243 x10e3/uL (140-360); RED CELL DISTRIBUTION WIDTH 12.7 % (11.7-14.4)
[2021-05-09] VITALS (8 sets, daily range): BP systolic 149–170; BP diastolic 56–75
[2021-05-09 04:43] LABS: BASOPHILS # (AUTO) 0.1 (0.0-0.1); BASOPHILS % 0.3 % (0.0-1.0); HEMOGLOBIN 12.6 g/dL (12.0-16.0); LYMPHOCYTES # (AUTO) 0.8 (1.0-3.2); LYMPHOCYTES % 4.4 % (18.0-39.1); MEAN CORPUSCULAR HEMOGLOBIN 30.9 pg (28-32); MEAN CORPUSCULAR VOLUME 88.2 fL (81-99); MONOCYTES # (AUTO) 0.7 (0.2-0.8); MONOCYTES % 3.9 % (4.4-11.3); NEUTROPHILS # (AUTO) 15.9 (2.1-6.9); NEUTROPHILS % 83.9 % (38.7-80.0); PLATELET COUNT 240 x10e3/uL (140-360); RED BLOOD COUNT 4.08 x10e6/uL (3.6-5.1); RED CELL DISTRIBUTION WIDTH 12.3 % (11.7-14.4)
[2021-05-09 05:02] LABS: ANION GAP 8.8 mmol/L (8-16); CALCIUM 7.9 mg/dL (8.4-10.2); CREATININE, SERUM 0.66 mg/dL (0.57-1.11); POTASSIUM 3.8 mmol/L (3.5-5.1)
[2021-05-09] MEDS: METHYLPREDNISOLONE SOD SUCC 125 MG/2ML VIAL IV SCH ×2 (05:04→17:19)
[2021-05-09] MEDS: BUDESONIDE/FORMOTEROL 160/4.5MCG INHALER INH SCH ×2 (07:40→19:30)
[2021-05-10] VITALS: BP 175/76
[2021-05-10 04:00] VITALS: BP 167/64
[2021-05-10 04:56] LABS: BASOPHILS # (AUTO) 0.1 (0.0-0.1); BASOPHILS % 0.4 % (0.0-1.0); HEMATOCRIT 37.6 % (34.2-44.1); HEMOGLOBIN 13.2 g/dL (12.0-16.0); LYMPHOCYTES # (AUTO) 1.2 (1.0-3.2); LYMPHOCYTES % 6.1 % (18.0-39.1); MEAN CORPUSCULAR HEMOGLOBIN 30.8 pg (28-32); MEAN CORPUSCULAR HGB CONC 35.1 g/dL (31-35); MEAN CORPUSCULAR VOLUME 87.9 fL (81-99); MONOCYTES # (AUTO) 1.5 (0.2-0.8); MONOCYTES % 8.1 % (4.4-11.3); NEUTROPHILS % 78.2 % (38.7-80.0); PLATELET COUNT 246 x10e3/uL (140-360); RED BLOOD COUNT 4.28 x10e6/uL (3.6-5.1); RED CELL DISTRIBUTION WIDTH 12.4 % (11.7-14.4)
[2021-05-10 05:19] LABS: ALBUMIN 3.1 g/dL (3.5-5.0); ALBUMIN/GLOBULIN RATIO 1.1 (0.8-2.0); CREATININE, SERUM 0.69 mg/dL (0.57-1.11)
[2021-05-10] MEDS: METHYLPREDNISOLONE SOD SUCC 125 MG/2ML VIAL IV SCH ×2 (05:39→16:33)
[2021-05-10 08:57] VITALS: BP 160/61
[2021-05-10 09:04] VITALS: BP 160/61
[2021-05-10] MEDS: BUDESONIDE/FORMOTEROL 160/4.5MCG INHALER INH SCH (09:15)
[2021-05-10 12:48] VITALS: BP 159/59
[2021-05-10] MEDS ORDERED: PREDNISONE10 MG PO (15:36)
[2021-05-10 16:49] VITALS: BP 166/61
== END 2021-05-10 18:20 | disposition home or self-care (01) | DRG 871 ==
LOC: ER 05:59 → ERHOLD 07:37 → UNDOADMIN 07:48 → MED/SURG2 07:59 → ERHOLD 07:59 → MED/SURG2 08:42
DX: A41.9 Sepsis, unspecified organism (principal); J18.9 Pneumonia, unspecified organism; J96.20 Acute and chronic respiratory failure, unspecified whether with hypoxia or hypercapnia; J44.0 Chronic obstructive pulmonary disease with (acute) lower respiratory infection; E87.1 Hypo-osmolality and hyponatremia; J44.1 Chronic obstructive pulmonary disease with (acute) exacerbation; E87.2 Acidosis; F17.210 Nicotine dependence, cigarettes, uncomplicated; I10 Essential (primary) hypertension; D64.9 Anemia, unspecified; Z88.5 Allergy status to narcotic agent; E87.5 Hyperkalemia; R53.81 Other malaise; M85.80 Other specified disorders of bone density and structure, unspecified site; Z99.81 Dependence on supplemental oxygen; Z20.822 Contact with and (suspected) exposure to COVID-19
CPT/HCPCS: 36415; 71045; 80048; 80053; 83605; 83930; 83935; 85025; 87040; 93005; 93306; 94640; 94664; 96376; 97139; 99251; 99284; J0456; J0696; J1940; J2930; J7030; J7050; U0002

== ENCOUNTER 2022-03-01 00:53 | Emergency (ER) | payer MEDICARE, OTHER ==
[~2022-03-01] VITALS: Ht 269.2 cm; Wt 57.6 kg
[~2022-03-01 00:53] MED LIST changes: +AZOR 10-20 MG1 EACH PO; +PREDNISONE10 MG PO; +PRIMATENE MIS11.7 GM INH
[2022-03-01] MEDS ORDERED: TRAMADOL HCL 50 MG TAB PO STA (01:23)
[2022-03-01] MEDS ORDERED: ULTRAM 50MG50 MG PO (03:39)
== END 2022-03-01 04:30 | disposition home or self-care (01) ==
LOC: ER 00:58
DX: M54.50 Low back pain, unspecified (principal); W01.0XXA Fall on same level from slipping, tripping and stumbling without subsequent striking against object, initial encounter; Y93.01 Activity, walking, marching and hiking; Y92.89 Other specified places as the place of occurrence of the external cause; I10 Essential (primary) hypertension; J44.9 Chronic obstructive pulmonary disease, unspecified; M81.8 Other osteoporosis without current pathological fracture
CPT/HCPCS: 70450; 71250; 72125; 74176; 93005; 99283

== ENCOUNTER 2024-05-16 21:42 | Emergency (ER) | payer MEDICARE ==
[~2024-05-16] VITALS: Ht 147.3 cm; Wt 52.6 kg
[~2024-05-16 21:42] MED LIST changes: +ULTRAM 50MG50 MG PO
[2024-05-16 22:36] LABS: BASOPHILS % 0.3 % (0.0-1.0); EOSINOPHILS % 0.3 % (0.0-6.0); HEMATOCRIT 40.1 % (34.2-44.1); HEMOGLOBIN 13.8 g/dL (12.0-16.0); LYMPHOCYTES # (AUTO) 0.7 (1.0-3.2); LYMPHOCYTES % 4.4 % (18.0-39.1); MEAN CORPUSCULAR HEMOGLOBIN 31.6 pg (28-32); MEAN CORPUSCULAR HGB CONC 34.4 g/dL (31-35); MEAN CORPUSCULAR VOLUME 91.8 fL (81-99); MONOCYTES # (AUTO) 1.1 (0.2-0.8); MONOCYTES % 7.5 % (4.4-11.3); NEUTROPHILS # (AUTO) 13.3 (2.1-6.9); PLATELET COUNT 177 x10e3/uL (140-360); RED BLOOD COUNT 4.37 x10e6/uL (3.6-5.1); WHITE BLOOD COUNT 15.26 x10e3/uL (4.8-10.8)
[2024-05-16 22:48] LABS: ALBUMIN/GLOBULIN RATIO 1.2 (0.8-2.0); ANION GAP 14.1 mmol/L (8-16); BILIRUBIN,TOTAL 0.8 mg/dL (0.2-1.2); CALCIUM 9.5 mg/dL (8.4-10.2); CREATININE, SERUM 0.86 mg/dL (0.57-1.11); POTASSIUM 4.1 mmol/L (3.5-5.1); TOTAL PROTEIN 7.4 g/dL (6.5-8.1)
[2024-05-16] MEDS: TRAMADOL HCL 50 MG TAB PO ONE (23:11)
[2024-05-16] MEDS: ACETAMINOPHEN 325 MG TAB PO ONE (23:11)
[2024-05-16] MEDS: ONDANSETRON HCL INJ 2MG/ML 2ML 2 MG/ML VIAL IV STA (23:11)
[2024-05-16] MEDS ORDERED: CEFTRIAXONE 1 GM VIAL ONE (23:41)
[2024-05-17 00:07] VITALS: PULSE 97; RESP 23; TEMP 98.4
[2024-05-17 01:10] LABS: BILIRUBIN,URINE SMALL (NEGATIVE); CLARITY,URINE SL CLOUDY (CLEAR); COLOR,URINE YELLOW (YELLOW); GLUCOSE, URINE 500 (NEGATIVE); KETONES,URINE 1+ (NEGATIVE); LEUKOCYTE ESTERASE ,URINE NEGATIVE (NEGATIVE); NITRITE,URINE NEGATIVE (NEGATIVE); PH,URINE 6 (5 - 7); PROTEIN,URINE DIPSTICK 1+ (NEGATIVE)
[2024-05-17 01:37] LABS: BACTERIA,URINE MANY /HPF; EPITHELIAL CELLS,URINE FEW /LPF; RBC,URINE >50 /HPF (0-5); WBC,URINE (MAN) 0-5 /HPF (0-5)
[2024-05-17 02:29] VITALS: BP 148/78; PULSE 101; RESP 20; TEMP 98.4; O2SAT 97
[2024-05-17] MEDS: Morphine 4mg INJECTION 4 MG/ML INJ IV ONE (02:36)
== END 2024-05-17 02:45 | disposition other institution (70) ==
LOC: ER 21:46
DX: S32.010A Wedge compression fracture of first lumbar vertebra, initial encounter for closed fracture (principal); W01.0XXA Fall on same level from slipping, tripping and stumbling without subsequent striking against object, initial encounter; Y93.01 Activity, walking, marching and hiking; Y92.89 Other specified places as the place of occurrence of the external cause; I10 Essential (primary) hypertension; J44.9 Chronic obstructive pulmonary disease, unspecified; M81.0 Age-related osteoporosis without current pathological fracture; Z11.52 Encounter for screening for COVID-19
CPT/HCPCS: 36415; 71045; 72131; 80053; 81001; 83605; 85025; 87040; 87086; 93005; 99285; J0696; J2270; J2405; U0002